=== PATIENT | female | born 1990 | race Caucasian/White ===

== ENCOUNTER → 2018-01-26 11:32 | Outpatient (CLI) | payer OTHER ==
[~2018-01-26 11:32] MED LIST: BACTRIM DS TABL1 TAB PO; PYRIDIUM200 MG PO; TRAMADOL HCL-AP1 TAB PO
== END | disposition home or self-care (01) ==
LOC: LAB 11:32
DX: E03.8 Other specified hypothyroidism (principal); D63.8 Anemia in other chronic diseases classified elsewhere; N30.90 Cystitis, unspecified without hematuria; E78.00 Pure hypercholesterolemia, unspecified; M81.0 Age-related osteoporosis without current pathological fracture

== ENCOUNTER 2019-11-05 08:19 | Emergency (ER) | payer OTHER ==
[~2019-11-05] VITALS: Ht 167.6 cm; Wt 59.0 kg
[2019-11-05] MEDS ORDERED: ACTIVELLA 0.5-1 EACH PO (08:28)
== END 2019-11-05 18:20 | disposition home or self-care (01) ==
LOC: ER 08:19
DX: K52.89 Other specified noninfective gastroenteritis and colitis (principal)

== ENCOUNTER 2024-08-16 19:13 | Emergency (ER) | payer OTHER ==
[~2024-08-16] VITALS: Ht 165.1 cm; Wt 59.0 kg
[~2024-08-16 19:13] MED LIST changes: +ACTIVELLA 0.5-1 EACH PO
[2024-08-16] MEDS ORDERED: DEXAMETHASONE SODIUM PHOSPHATE 4 MG/ML VIAL IM STA (19:51)
[2024-08-16] MEDS ORDERED: ORPHENADRINE CITRATE 30 MG/ML AMPUL IM STA (19:52)
[2024-08-16] MEDS ORDERED: DIPHENHYDRAMINE HCL 12.5 MG/5 ML BLIST.PACK PO STA (19:53)
[2024-08-16] MEDS ORDERED: BENADRYL25 MG PO (20:53)
== END 2024-08-16 21:20 | disposition home or self-care (01) ==
LOC: ER 19:15
DX: T78.40XA Allergy, unspecified, initial encounter (principal)

== ENCOUNTER 2024-09-03 08:21 | Outpatient (CLI) | payer OTHER ==
[2024-09-03 09:18] LABS: HEMATOCRIT 37.2 % (36.0-45.00); HEMOGLOBIN 12.8 g/dL (12.0-15.00); MEAN CELL VOLUME 88.4 fL (80.00-100.00); MEAN CORPUSCULAR HEMOGLOBIN 30.4 pg (27.00-32.0); MEAN CORPUSCULAR HGB CONC 34.4 g/dl (32.0-36.0); PLATELET COUNT 416 K/uL (150-450); RED BLOOD COUNT 4.21 M/uL (4.00-6.00); RED CELL DISTRIBUTION WIDTH 13.9 % (11.5-14.5)
[2024-09-03 09:31] LABS: PH,URINE 5.5 (5.0-8.0); URINE APPEARANCE Clear; URINE BILIRRUBIN Negative (NEGATIVE); URINE BLOOD Negative; URINE COLOR Yellow; URINE GLUCOSE Negative (NEGATIVE); URINE KETONE Negative (NEGATIVE); URINE LEUKOCYTE Small; URINE NITRATE Negative; URINE PROTEIN Negative (NEGATIVE)
[2024-09-03 09:34] LABS: URINE BACTERIA 653.9 uL (0.0-1933); URINE CAST 0.15 uL (0.0-1.40); URINE EPITHELIAL CELLS 13.4 uL (0.0-38.8); URINE RBC 4.1 uL (0.0-20.8); URINE WBC 31.8 uL (0.0-23.2)
[2024-09-03 09:52] LABS: COL EPI 106 SECONDS (82-175)
[2024-09-03 09:53] LABS: INR 0.95; PARTIAL THROMBOPLASTIN TIME 28.7 SECONDS (22.0-34.0); PROTHROMBIN TIME 10.4 SECONDS (9.0-11.5)
[2024-09-03 10:04] LABS: BILIRUBIN TOTAL 0.38 mg/dL (0.3-1.2); CALCIUM 8.9 mg/dL (8.5-10.1); CREATININE SERUM 0.67 mg/dL (0.55-1.02); GLOBULINA 3.2 G/DL (2.4-3.5); POTASSIUM 4.03 mEq/L (3.5-5.1); TOTAL PROTEIN 7.2 gm/dL (6.4-8.2)
== END 2024-09-03 08:22 | disposition home or self-care (01) ==
LOC: RAD 08:21
PROVIDERS: ATTEND Orthopaedic Surgery
DX: D64.9 Anemia, unspecified (principal); E88.89 Other specified metabolic disorders; D68.8 Other specified coagulation defects; N39.0 Urinary tract infection, site not specified; Z22.322 Carrier or suspected carrier of Methicillin resistant Staphylococcus aureus; E11.9 Type 2 diabetes mellitus without complications; I10 Essential (primary) hypertension; Z76.89 Persons encountering health services in other specified circumstances

== ENCOUNTER → 2024-09-03 | Outpatient (CLI) | payer OTHER ==
[~2024-09-03] MED LIST changes: +BENADRYL25 MG PO; +STRATTERA60 MG
== END | disposition home or self-care (01) ==
LOC: RAD 09:27
PROVIDERS: ATTEND Orthopaedic Surgery
DX: M25.561 Pain in right knee (principal); M25.562 Pain in left knee

== ENCOUNTER → 2024-09-11 | Day surgery (SDC) | payer OTHER ==
[~2024-09-11] MED LIST changes: +BUPIVACAINE HCL 30 ML VIAL IJ ONE; +LIDOCAINE HCL 1%/EPINEPHRINE 20ML VIAL IJ ONE; +MORPHINE SULFATE 4 MG/ML VIAL IV ONE; +NAFCILLIN SODIUM 2,000 MG VIAL IJ ONE
== END | disposition home or self-care (01) ==
LOC: CIR.AMB 08:30
PROVIDERS: ATTEND Orthopaedic Surgery
DX: M65.862 Other synovitis and tenosynovitis, left lower leg (principal); M22.02 Recurrent dislocation of patella, left knee; M22.42 Chondromalacia patellae, left knee

== ENCOUNTER 2024-10-08 07:17 | Outpatient (CLI) | payer OTHER ==
[~2024-10-08 07:17] MED LIST changes: -BUPIVACAINE HCL 30 ML VIAL IJ ONE; -LIDOCAINE HCL 1%/EPINEPHRINE 20ML VIAL IJ ONE; -MORPHINE SULFATE 4 MG/ML VIAL IV ONE; -NAFCILLIN SODIUM 2,000 MG VIAL IJ ONE
== END 2024-10-08 07:23 | disposition home or self-care (01) ==
LOC: RAD 07:17
PROVIDERS: ATTEND Orthopaedic Surgery
DX: M22.02 Recurrent dislocation of patella, left knee (principal)

== ENCOUNTER 2024-12-20 12:09 | Outpatient (CLI) | payer OTHER | END 2024-12-20 12:15 | disposition home or self-care (01) | LOC: RAD 12:09 | PROVIDERS: ATTEND Orthopaedic Surgery | DX: M22.02 Recurrent dislocation of patella, left knee (principal) ==

== ENCOUNTER 2025-03-28 13:45 | Outpatient (CLI) | payer OTHER | END 2025-03-28 14:05 | disposition home or self-care (01) | LOC: RAD 13:45 | PROVIDERS: ATTEND Orthopaedic Surgery | DX: M25.562 Pain in left knee (principal); M25.511 Pain in right shoulder; M54.6 Pain in thoracic spine ==